=== PATIENT | female | born 1980 | race Two or more races ===

== ENCOUNTER 2022-01-04 07:37 | Outpatient (REF) | payer OTHER, SELFPAY ==
--- NOTE | ~2022-01-04 | MM_ITS ---
EXAMINATION: MM SCREENING DIGITAL BREAST TOMOSYNTHESIS, BILATERAL CLINICAL INFORMATION: Screening. Asymptomatic. Age 41. No prior breast imaging. The lifetime risk of breast cancer based on the Tyrer-Cuzick Model is 11%. COMPARISON: None (current study represents initial baseline exam). TECHNIQUE: Digital breast tomosynthesis is performed in both the craniocaudal and mediolateral oblique views along with computer-aided detection (CAD). Synthesized 2D images are generated from the tomosynthesis. FINDINGS: The breasts are heterogeneously dense, which may obscure small masses (ACR BI-RADS breast composition Category c). Breast tissue composition borders on average fibroglandular. There are no significant masses, abnormal calcifications, or other abnormalities. No architectural abnormality. The axilla and skin contours are unremarkable. MM/MM tomosynthesis screening BI IMPRESSION: No mammographic evidence of malignancy. ASSESSMENT: BI-RADS 1: Negative RECOMMENDATION: Routine annual mammography screening. This patient's information was entered into a reminder system with a target due date for their next mammogram.
== END 2022-01-04 07:38 | disposition home or self-care (01) ==
LOC: HO.MAMMO 07:37
PROVIDERS: Visit Provider Nurse Practitioner Family
DX: Z12.31 Encounter for screening mammogram for malignant neoplasm of breast (principal)
CPT/HCPCS: 77063; 77067

== ENCOUNTER 2022-02-22 07:42 | Emergency (ER) | payer OTHER, SELFPAY ==
[2022-02-22 07:48] VITALS: BP 132/93; PULSE 79; RESP 16; TEMP 36.8; O2SAT 100; BMI 23.4
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
[2022-02-22] MEDS: Cyclobenzaprine HCl 5 MG TABLET PO (08:42)
[2022-02-22] MEDS: Ketorolac Tromethamine 15 MG/ML VIAL IM (08:43)
== END 2022-02-22 08:47 | disposition home or self-care (01) ==
PROVIDERS: Emergency Provider Emergency Medicine; PCP Nurse Practitioner Family
DX: Z04.1 Encounter for examination and observation following transport accident (principal); M54.9 Dorsalgia, unspecified
CPT/HCPCS: 96372; 99283; 99284; J1885

== ENCOUNTER 2023-01-18 07:43 | Outpatient (REF) | payer OTHER, SELFPAY ==
--- NOTE | ~2023-01-18 | MM_ITS ---
EXAMINATION: MM SCREENING DIGITAL BREAST TOMOSYNTHESIS, BILATERAL CLINICAL INFORMATION: Screening. Asymptomatic. The lifetime risk of breast cancer based on the Tyrer-Cuzick Model is 10.5%. COMPARISON: Mammography: This study is compared with the prior exam dating back to 2021. TECHNIQUE: Digital breast tomosynthesis is performed in both the craniocaudal and mediolateral oblique views along with computer-aided detection (CAD). Synthesized 2D images are generated from the tomosynthesis. FINDINGS: The breasts are heterogeneously dense, which may obscure small masses (ACR BI-RADS breast composition Category c). There are no significant masses, abnormal calcifications, or other abnormalities. MM/MM tomosynthesis screening BI IMPRESSION: No mammographic evidence of malignancy. ASSESSMENT: BI-RADS BI-RADS 1 - Negative RECOMMENDATION: Routine annual mammography screening. 1 year F/U This patient's information was entered into a reminder system with a target due date for their next mammogram.
== END 2023-01-18 07:44 | disposition home or self-care (01) ==
LOC: HO.MAMMO 07:43
PROVIDERS: PCP Nurse Practitioner Family; Visit Provider Nurse Practitioner Family
DX: Z12.31 Encounter for screening mammogram for malignant neoplasm of breast (principal)
CPT/HCPCS: 77063; 77067

== ENCOUNTER → 2023-01-18 07:45 | Outpatient (BNV) | payer OTHER, SELFPAY | PROVIDERS: PCP Nurse Practitioner Family; Visit Provider Radiology Diagnostic Radiology | DX: Z12.31 Encounter for screening mammogram for malignant neoplasm of breast (principal) | CPT/HCPCS: 77063; 77067 ==

== ENCOUNTER 2024-01-21 07:32 | Outpatient (REF) | payer OTHER, SELFPAY ==
--- NOTE | ~2024-01-21 | MM_ITS ---
EXAMINATION: MM SCREENING DIGITAL BREAST TOMOSYNTHESIS, BILATERAL CLINICAL INFORMATION: Screening. Asymptomatic. COMPARISON: Mammography: This study is compared with prior exams dating back to 2021. TECHNIQUE: Digital breast tomosynthesis is performed in both the craniocaudal and mediolateral oblique views along with computer-aided detection (CAD). Synthesized 2D images are generated from the tomosynthesis. FINDINGS: The breasts are heterogeneously dense, which may obscure small masses (ACR BI-RADS breast composition Category c). There are no significant masses, abnormal calcifications, or other abnormalities. MM/MM tomosynthesis screening BI IMPRESSION: No mammographic evidence of malignancy. ASSESSMENT: BI-RADS BI-RADS 1 - Negative RECOMMENDATION: Routine annual mammography screening. 1 year F/U This examination should not preclude the clinical evaluation of a suspicious palpable abnormality. This patient's information was entered into a reminder system with a target due date for their next mammogram.
== END 2024-01-21 07:33 | disposition home or self-care (01) ==
LOC: HO.MAMMO 07:32
PROVIDERS: PCP Student in an Organized Health Care Education/Training Program; Visit Provider Student in an Organized Health Care Education/Training Program
DX: Z12.31 Encounter for screening mammogram for malignant neoplasm of breast (principal)
CPT/HCPCS: 77063; 77067

== ENCOUNTER → 2024-01-21 07:45 | Outpatient (BNV) | payer OTHER, SELFPAY | PROVIDERS: PCP Student in an Organized Health Care Education/Training Program; Visit Provider Radiology Diagnostic Radiology | DX: Z12.31 Encounter for screening mammogram for malignant neoplasm of breast (principal) | CPT/HCPCS: 77063; 77067 ==

== ENCOUNTER 2025-03-12 07:21 | Outpatient (REF) | payer OTHER, SELFPAY ==
--- NOTE | ~2025-03-12 | MM_ITS ---
EXAMINATION: MM SCREENING DIGITAL BREAST TOMOSYNTHESIS, BILATERAL CLINICAL INFORMATION: Screening. Asymptomatic. COMPARISON: Mammography: Comparison is made with available priors TECHNIQUE: Digital breast mammography with tomosynthesis is performed in both the craniocaudal and mediolateral oblique views along with computer-aided detection (CAD). FINDINGS: The breasts are heterogeneously dense, which may obscure small masses (ACR BI-RADS breast composition Category c). There are no significant masses, abnormal calcifications, or other abnormalities. MM/MM tomosynthesis screening BI IMPRESSION: No mammographic evidence of malignancy. ASSESSMENT: BI-RADS BI-RADS 1 - Negative RECOMMENDATION: Routine annual mammography screening. 1 year F/U This examination should not preclude the clinical evaluation of a suspicious palpable abnormality. This patient's information was entered into a reminder system with a target due date for their next mammogram. Electronically signed by: Mónica Carcamo DO 03/16/2025 11:54 AM EDT
--- OUTSIDE RECORDS SUMMARY | 2025-03-12 07:24 | XMS_ITS | Clinical Summary ---
Author Organization [facility] Address [address] [place] [address] Care Team Providers Care Auto Transmission Mechanic Name Role Phone Pcp, No Primary Care Provider Unavailabl e Allergies No known active allergies Medications No known medications Active Problems No known active problems Social History Tobacco Use Types Packs/Day Years Used Date Smoking Tobacco: Never Smokeless Tobacco: Never Comments Unknown Sex and Gender Information Value Date Recorded Sex Assigned at Not on file Legal Sex Female 12:19 PM EDT Gender Identity Not on file Sexual Orientation Not on file Last Filed Vital Signs Vital Sign Reading Time Taken Comments Blood Pressure 102/67 05/07/2020 12:48 PM EDT Pulse 82 05/07/2020 12:48 PM EDT Temperature 37.2 C (98.9 F) 05/07/2020 12:48 PM EDT Respiratory Rate - - Oxygen Saturation 97% 05/07/2020 12:48 PM EDT Inhaled Oxygen Concentration - - Weight - - Height - - Body Mass Index - - Plan of Treatment Health Maintenance Due Date Last Done Comments Hepatitis C Virus Screening 1981 HIV Screening 1994 DTaP/Tdap/Td Vaccines (1 - Tdap) 2000 Hepatitis B Vaccines (1 of 3 - 19+ 3-dose series) 2000 Pap Smear (Ages 21-65) 2002 HPV Vaccines (1 - 3-dose SCD M series) 2008 Mammogram 2021 COVID-19 Vaccine ( - 2023-2 5 season) 2024 Influenza Vaccine 02/19/2025 Pneumococcal Vaccine: Pediat rahul (0-5 Years) and At-Risk Patients (6 to 49 Years) Aged Out No longer eligible b ased on patient's age to complete this topic Insurance [facility] Care Teams Auto Transmission Mechanic Relationship Specialty Start Date End Date Pcp, Lanie PCP - General General Medicine 05/07/20
--- OUTSIDE RECORDS SUMMARY | 2025-03-12 07:24 | XMS_ITS | Clinical Summary ---
Author Organization [facility] Address [address] [place] [phone] Phone Care Team Providers Care Landscape Crew Member Name Role Phone Lisbeth Benitez Primary Care Provider [phone] Allergies No known active allergies Medications therapeutic multivitamin tablet Take 1 tablet by mouth daily. Active ACZONE 7.5 % gel with pump Apply 1 application. topically daily. 3 Active adapalene (DIFFERIN) 0.3 % gel APPLY SPARINGLY TO FACE AT BEDTIME FOR ACNE; START 2-3 TIMES WEEKLY INCREASING TO EVERY NIGHT TOLERATED. 5 Active spironolactone (ALDACTONE) 50 MG tablet TAKE ONE TABLET BY MOUTH TWICE A DAY FOR ACNE. 5 Active doxycycline hyclate (VIBRAMYCIN) 50 MG capsule TAKE ONE CAPSULE BY MOUTH TWICE A DAY WITH A GLASS OF WATER; AVOID DAIRY & CALCIUM PRODUCTS FOR 1 HOUR BEFORE & AFTER TAKING; CAUTION - SUN 5 Active etonogestreL-eth inyl estradioL (NUVARING) 0.12-0.015 mg/24 hr vaginal ring INSERT VAGINALLY AND LEAVE IN PLACE FOR 3 CONSECUTIVE WEEKS, THEN REMOVE FOR 1 WEEK 3 each 3 5 Active Active Problems Problem Noted Date Diagnosed Date Dermoid cyst of left ovary 03/29/2020 Overview (09/22/2024): Stable left ovarian dermoid. Maximal measurement has varied between 3.2 and 3.9 cm. The appearance is overall stable and there is no increased vascularity. Asymptomatic. Monitoring, on US, last 2022. Sees gynecology. Assessment & Plan (11/04/2024 9:57 AM EDT): I reviewed the natural history of dermoid cyst with the patient and explained that the vast majority are benign. I explained that they can grow over time. I reviewed that we do not necessarily remove them if she is asymptomatic. However, I would recommend checking a yearly ultrasound to assess stability. She is amenable to this plan of action. Assessment & Plan (03/29/2020 12:10 PM EDT): 39-year-old female with an overall stable left ovarian dermoid. It measured approximately 4.5 cm on the most recent ultrasound but on previous ultrasounds the maximal measurement has varied between 3.2 and 3.9 cm. The appearance is overall stable and there is no increased vascularity. She is currently asymptomatic. Therefore, I think a repeat ultrasound in 6 months is reasonable. Acne vulgaris 01/29/2019 Overview (09/22/2024): Sees dermatology. Reports her skin is always very greasy or very dry. She breaks out badly. Recently on Differin gel and Aczone. Chronic seasonal allergic rhinitis due to pollen 01/07/2018 Overview (09/22/2024): No issues in recent years, comes and goes. Immunizations Immunization Administration Dates Next Due COVID-19 (Pre-05/13) Moderna Vaccine, mRNA, PF 08/18/2021,12/26/2020,2020,2020 INFLUENZA, SPLIT VIRUS, TRIVALENT PF 07/27/2015 Tdap 01/29/2019 Family History Medical History Relation Comments No Known Problems Brother No Known Problems Daughter 1 Allergies Daughter 2 Asthma Daughter 2 Food Allergy Daughter 2 Asthma Father Thyroid disease Father Breast cancer Maternal Aunt Anxiety disorder Mother Depression Mother Hyperlipidemia Mother Hypertension Mother Kidney failure Sister Liver disease Sister Congenital Relation Status Comments Brother Alive Daughter 1 Alive Daughter 2 Alive Father Alive Maternal Aunt Maternal Grandfather Maternal Grandmother Mother Alive Paternal Grandfather Paternal Grandmother Sister (Age 19) Social History Tobacco Use Types Packs/Day Years Used Date Smoking Tobacco: Never Smokeless Tobacco: Never Alcohol Use Standard Drinks/Week Comments Not Currently 0 (1 standard drink = 0.6 oz pur e alcohol) 2 x month Child or Family Care Answer Date Record ed Do you have problems with on e of the following making it difficult for you to work, study, or receive health care? No 01/02/2023 Education Answer Date Recorded Are you interested in more education? Not on cathleen e 01/12/2025 Are you concerned about learning? Not on file 01/12/2025 No 01/12/2025 No 01/12/2025 Food Answer Date Recorded Within the past 6 months we worried whether our food would run out before we got money to buy more. Never True 01/02/2023 Within the past 6 months the food we bought just didn't last and we didn't have enough money to get more. Never True Residential Stability Answer Date Recor ded What is your housing situation today? I have des sing 01/02/2023 How many times have you move d in the past 12 months? Zero (I did not move) 01/02/2023 Paying for Meds Answer Date Recorded Do you have trouble paying for medicines? No 01/02/2023 Paying Utility Bills Answer Date Record ed Do you have trouble paying your heating or elect ricity bill? No 01/02/2023 Transportation Answer Date Recorded Has the lack of transportati on kept you from medical appointments or from getting medications? No 01/02/2023 Unemployment Answer Date Recorded Are you currently unemployed or working on a part-time or temporary basis, and looking for work? No 01/02/2023 Digital Access Answer Date Recorded No 01/12/2025 No 01/12/2025 Reliable internet access at home? Not on file 01/12/2025 Device with a working camera? Not on file Intimate Partner Violence Answer Date R ecorded Denied Basic Needs Not on file 09/15/2024 In the past 12 months have y ou been in a relationship with a person who hurts, threatens, or tries to control you? No 09/15/2024 Worried food would run out Not on file 09/15 In the past 12 months have y ou been in a relationship with a person who hurts, threatens, or tries to control you? No 09/15/2024 Comments No Sex and Gender Information Value Date Recorded Sex Assigned at Not on file Legal Sex Female 9:20 PM EDT Gender Identity Not on file Sexual Orientation Not on file Last Filed Vital Signs Vital Sign Reading Time Taken Comments Blood Pressure 98/66 11/04/2024 9:39 AM EDT Pulse 92 09/22/2024 11:02 AM EST Temperature 36.3 C (97.4 F) 09/22/2024 11:02 AM EST Respiratory Rate 16 01/02/2023 8:56 AM EDT Oxygen Saturation 96% 09/22/2024 11:02 AM EST Inhaled Oxygen Concentration - - Weight 57.2 kg (126 lb 3.2 oz) 11/04/2024 9:39 A M EDT Height 155.5 cm (5' 1.22 ) 09/22/2024 11:[address] Body Mass Index 23.67 09/22/2024 11:02 AM EST Plan of Treatment Upcoming Encounters Date Type Department Care Team (Late st Contact Info) Description 04/16/2025 4:00 PM EDT Office Visit [facility] [address] [place] [address] Lisbeth Benitez [address] [facility], [address] [place] [address] [email or web address] Health Maintenance Due Date Last Done Comments POTASSIUM LEVEL 10/26/2023 10/25/2022, 11/21, 12/09/2020, Additional history exists COVID-19 VACCINE ( season) 2024 08/18/2021, 12/26/2020, 2020, Additional history exists MAMMOGRAM 01/20/2025 01/21/2024, 10/22, 01/18/2023, Additional history exists DEPRESSION SCREENING 09/15/2025 09/15/2024 PAP SMEAR 01/03/2028 01/02/2023, 12/20, 01/07/2018 Adult Td,Tdap Booster 01/29/2029 01/29/2019 HIV ONE-TIME SCREENING (18-65 YEARS) Completed 08/06/2019 HEPATITIS C SCREENING Completed 12/09/2020 SMOKING STATUS SCREENING (Once After 26 Yrs) Completed 11/04/2024 HEPATITIS A VACCINES Aged Out No long er eligible based on patient's age to complete this topic HIB VACCINES Aged Out No longer eligi ble based on patient's age to complete this topic MENINGOCOCCAL VACCINES (ACWY) Aged Out No longer eligible based on patient's age to complete this topic MENINGOCOCCAL VACCINES (B) Aged Out N o longer eligible based on patient's age to complete this topic PNEUMOCOCCAL VACCINES (0-49 years) Aged Out No longer eligible based on patient's age to complete this topic Medical Devices Not on file Procedures Procedure Name Priority Date/Time Associated Diagnosis Comments MAMMOGRAPHY Routine 01/21/2024 3:45 PM EDT PAP TEST Routine 01/02/2023 12:00 AM EDT OUTSIDE POTASSIUM LEVEL Routine 10/25/2022 HEPATITIS C ANTIBODY, QUALITATIVE Routine 12/09/2020 8:03 AM EDT Routine general medical examination at a health care facility from Last 3 Months or Most Recently Relevant to Health Maintenance Results * MAMMOGRAPHY FOR RESULT ENTRY ONLY (01/21/2024 3:45 PM EDT) us Historical Provider HEALTH MAINTENANCE Final Result * Pap Test (01/02/2023 12:00 AM EDT) 01/02/2023 01/03/2023 9:0 9 AM EDT Narrative SEE NARRATIVE - 01/08/2023 5:50 PM EDT [address] [id number] [employer] Database Analyst: Lorie Suarez MD CONTRACT ASSOCIATE MANAGER Cytology Report FINAL DIAGNOSIS A. PAP SMEAR (SUREPATH) CE: SPECIMEN ADEQUACY: Satisfactory for evaluation; transformation zone present. INTERPRETATION: NEGATIVE FOR INTRAEPITHELIAL LESION OR MALIGNANCY. Reactive changes. Electronically Signed Out By: MD Esther Tsang CT(ASCP) By his/her signature above, the pathologist listed as making the Final Diagnosis certifies that he/she has personally reviewed this case and confirmed or corrected the diagnosis. The Pap test is a screening test primarily for squamous cancers and precursors and has associated false-negative and false-positive results. New technologies such as liquid-based preparations may decrease but will not eliminate all false-negative results. Regular sampling and follow-up of unexplained clinical signs and symptoms are recommended to minimize false negative results. PROCEDURES/ADDENDA HPV Testing (Requested) Ordered Date: 01/03/2023 A. PAP SMEAR (SUREPATH) CE: Human Papilloma Virus Test NEGATIVE for high-risk Human Papilloma Virus types 16, 18, 45 and the Other high risk probe set (Includes 31, 33, 35, 39, 51, 52, 56, 58, 59, 66, 68) Note: Testing performed by [employer] HR-HPV analysis. Clinical correlation is advised. This HPV test was performed at [facility], [address] [place] [address]. This test has been FDA approved for [employer] cervical cytology specimens. The accuracy and precision of this test for all other specimen sources has been verified in the Cytopathology Laboratory of the [facility] and has not been cleared or approved by the U.S. Food and Drug Administration. Clinical correlation is advised. CLINICAL HISTORY Date of Last Menstrual Period: 12-19-2022 Other Clinical Conditions: Screening Pap SPECIMEN SOURCE A: PAP SMEAR (SUREPATH) CE Patient Name: ILIANA CARABALLO : 1980 (Age: 42) Sex: F Institution: [facility] Location: [facility] Date of Collection: 01/02/2023 Date of Reported: 01/08/2023 17:51 Results to: Emily Jensen MSN, BSN us Emily Jensen NUTRITION TEACHER CYTOLOGY ORDERABLES Final Resul t SEE NARRATIVE * Outside Potassium Level (10/25/2022) Potassium level - External 4.4 3.4 - 5.0 mmol/L us Historical Provider LAB BLOOD ORDERABLES Kamilah l Result * Hepatitis C antibody, qualitative (12/09/2020 8:03 AM EDT) HCV NON-REACTIV E NON-REACTI VE [facility] Blood 12/09/2020 8:03 AM EDT 12/09/2020 8:08 AM EDT us Emily Jensen NP LAB BLOOD ORDERABLES Final Resu lt [address] [phone] from Last 3 Months or Most Recently Relevant to Health Maintenance Insurance CIG PPO CIGNA PPO CIGNA PPO CIGNA PPO CIGNA PPO CIGNA PPO CIGNA PPO CIGNA PPO CIGNA PPO Care Teams Landscape Crew Member Relationship Specialty Start Date End Date Lisbeth Benitez [address] [place] [address], [address] [place] [address] PCP - General Family Medicine 09/22/24 Additional Source Comments The information contained in this document represents components of the legal health record. It is not the complete legal health record.[facility]
== END 2025-03-12 07:22 | disposition home or self-care (01) ==
LOC: HO.MAMMO 07:21
PROVIDERS: PCP Student in an Organized Health Care Education/Training Program; Visit Provider Student in an Organized Health Care Education/Training Program
DX: Z12.31 Encounter for screening mammogram for malignant neoplasm of breast (principal)
CPT/HCPCS: 77063; 77067

== ENCOUNTER → 2025-03-12 07:30 | Outpatient (BNV) | payer OTHER, SELFPAY | PROVIDERS: PCP Student in an Organized Health Care Education/Training Program; Visit Provider Internal Medicine | DX: Z12.31 Encounter for screening mammogram for malignant neoplasm of breast (principal) | CPT/HCPCS: 77063; 77067 ==